=== PATIENT | female | born 1975 | race Caucasian/White ===

== ENCOUNTER 2021-04-29 12:28 | Emergency (ER) | payer MEDICAID ==
[~2021-04-29] VITALS: Ht 162.6 cm; Wt 72.3 kg
[2021-04-29 12:35] VITALS: BP 115/69
[2021-04-29] MEDS ORDERED: PENI250T2 PO (12:43)
[2021-04-29] MEDS ORDERED: CLIN300C54 PO (12:50)
== END 2021-04-29 12:54 | disposition home or self-care (01) ==
LOC: ER 12:28
DX: K02.9 Dental caries, unspecified (principal); Z88.0 Allergy status to penicillin; Z88.2 Allergy status to sulfonamides; Z79.2 Long term (current) use of antibiotics; Z59.00 Homelessness unspecified
CPT/HCPCS: 99283